=== PATIENT | male | born 1985 | race Caucasian/White ===

== ENCOUNTER 2016-07-17 17:04 | Emergency (ER) | payer MEDICAID ==
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
[2016-07-17 18:21] VITALS: BP 113/80; PULSE 73; RESP 16; TEMP 98.4; O2SAT 96
== END 2016-07-17 18:29 | disposition home or self-care (01) ==
DX: S50.02XA Contusion of left elbow, initial encounter (principal); F17.200 Nicotine dependence, unspecified, uncomplicated; V18.9XXA Unspecified pedal cyclist injured in noncollision transport accident in traffic accident, initial encounter